=== PATIENT | female | born 1960 | race Caucasian/White ===

== ENCOUNTER 2024-03-27 13:52 | Emergency (ER) | payer MEDICARE, OTHER ==
[~2024-03-27] VITALS: Ht 160 cm; Wt 69.5 kg
[2024-03-27] MEDS ORDERED: DOXYCYCLINE MO100 MG PO (14:10)
[2024-03-27] MEDS ORDERED: OZEMPIC0.25 MG/02 (14:11)
[2024-03-27] MEDS ORDERED: ACYCLOVIR400 MG PO (14:11)
[2024-03-27] MEDS ORDERED: [UNRECOGNIZED DRUG - MIXTURE] SUB-Q (14:11)
[2024-03-27] MEDS ORDERED: MUPIROCIN22 GM TOP (14:36)
[2024-03-27 14:45] VITALS: BP 151/83
[2024-03-28] MEDS ORDERED: OZEMPIC2 MG/0.75 SUB-Q (17:24)
== END 2024-03-27 14:45 | disposition home or self-care (01) ==
LOC: ED 13:52
DX: J32.9 Chronic sinusitis, unspecified (principal)
CPT/HCPCS: 10160; 99282-25

== ENCOUNTER 2024-03-28 08:43 | Inpatient (IN) | payer MEDICARE, OTHER ==
[~2024-03-28] VITALS: Ht 160 cm; Wt 70.2 kg
[~2024-03-28 08:43] MED LIST: ACYCLOVIR400 MG PO; DOXYCYCLINE MO100 MG PO; MUPIROCIN22 GM TOP; OZEMPIC0.25 MG/02; [UNRECOGNIZED DRUG - MIXTURE] SUB-Q
--- OUTSIDE RECORDS SUMMARY | 2024-03-28 08:52 | XMS ---
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 E.D. VISIT COUNT (12 MO.) 2 STEVEN [facility] TOTAL 2 NOTE: Visits indicate total known visits. ED/UCC VISIT TRACKING (12 MO.) 03/28/2024 08:44 STEVEN [facility] OR TYPE: Emergency COMPLAINT: - FACIAL SKIN ISSUE 03/27/2024 13:53 STEVEN [facility] OR TYPE: Emergency COMPLAINT: - FACIAL SKIN ISSUE INPATIENT VISIT TRACKING (12 MO.) No inpatient visits to display in this time frame [email or web address]
[2024-03-28 09:20] LABS: BASOPHILS 0.4 % (0-2); EOSINOPHILS 0.3 % (0-6); HEMATOCRIT 38.7 % (35.0-50.0); HEMOGLOBIN 12.9 g/dL (12.0-18.0); LYMPHOCYTES 7.5 % (24-44); MCH 31.1 (27-36); MCHC 33.4 g/dl (30-36); MONOCYTES 10.1 % (0-12); NEUTROPHILS 81.7 % (39-80); PLATELET COUNT 302 K/uL (140-440); RBC 4.16 M/ul (4.3-5.7); RDW 14.4 (10.5-15.0)
[2024-03-28 09:38] LABS: ALBUMIN 3.3 g/dL (3.4-5.0); ALBUMIN/GLOBULIN RATIO 0.85 (1.1-2.4); ANION GAP 11.9 (7-21); BILIRUBIN, TOTAL 0.7 ng/dL (0.2-1.0); BUN/CREATININE RATIO 12.32 (6.0-28.6); CREATININE, SERUM 0.73 mg/dL (0.55-1.02); POTASSIUM 2.9 mmol/L (3.5-5.1); PROTEIN, TOTAL 7.2 g/dL (6.4-8.2)
[2024-03-28 09:42] LABS: LACTIC ACID, BLOOD 0.9 mmol/L (0.4-2.0)
[2024-03-28] MEDS ORDERED: POTASSIUM CHLORIDE 10 MEQ TABCR PO ONE (10:15)
[2024-03-28] MEDS ORDERED: LIDOCAINE 2% VISCOUS 6 ML SYR TOP ONE (11:45)
[2024-03-28] MEDS ORDERED: PIPERACILLIN/TAZOBACTAM 3.375 GM in DEXTROSE 5% 100 ML IV ONE (13:15)
[2024-03-28] MEDS ORDERED: VANCOMYCIN HCL/D5W 1 GM/270 ML PIGGYBACK KIT IV ONE (13:15)
[2024-03-28] MEDS ORDERED: DAPTOmycin 500 MG/10 ML VIAL IV ONE (13:30)
[2024-03-28] MEDS ORDERED: PROCHLORPERAZINE EDISYLATE 10 MG/2 ML VIAL IV PRN (13:45)
[2024-03-28] MEDS ORDERED: ACETAMINOPHEN 325 MG TAB PO PRN (13:45)
[2024-03-28] MEDS ORDERED: ondansetron HCL 4 MG/2 ML VIAL IV PRN (13:45)
[2024-03-28 14:11] LABS: MAGNESIUM 1.7 mg/dL (1.8-2.4); PHOSPHORUS, INORGANIC 2.7 mg/dL (2.5-4.9)
[2024-03-28 14:59] VITALS: BP 140/78
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
[2024-03-28] MEDS ORDERED: MAGNESIUM CHLORIDE 64 MG TABCR PO ONE (15:45)
--- NOTE | 2024-03-28 16:00 | NUR ---
PT REQUESTS SANDWICH BOX, GIVEN. PT STATES NO OTHER NEEDS AT THIS TIME, CALL LIGHT WITHIN REACH.
--- NOTE | 2024-03-28 16:04 | NUR ---
PT INFORMS THIS RN THAT HER PCP CALLED HER TODAY SAYING SHE HAS A UTI, DR BAUMAN CALLED, NO NEW ORDERS PLACED AT THIS TIME. PT UPDATED ON POC.
[2024-03-28] MEDS ORDERED: TRAMADOL HCL 50 MG TAB PO PRN (16:15)
--- NOTE | 2024-03-28 16:18 | NUR ---
THIS RN CALLS PT'S PCP FOR URINE CULTURE RESULTS PER DR BAUMAN'S REQUEST, RESULTS RECEIVED VIA FAX, DR BAUMAN NOTIFIED.
--- NOTE | 2024-03-28 16:53 | NUR ---
PT VISITING WITH BOYFRIEND AT THE BEDSIDE. PT STATES SHE DECIDED THAT SHE WOULD NOT LIKE THE FLU SHOT WHILE SHE IS AT THE HOSPITAL. PT STATES SHE BELIEVES SHE WAS GOING TO GET THE TETANUS SHOT WHILE HERE. PT REQUESTS MORE ICE WATER, GIVEN. PT STATES NO FURTHER NEEDS AT THIS TIME, CALL LIGHT WITHIN REACH.
[2024-03-28] MEDS ORDERED: OZEMPIC2 MG/0.75 SUB-Q (17:24)
--- NOTE | 2024-03-28 17:59 | NUR ---
PT DID NOT EAT PROVIDED TRAY, SHE HAD A SANDWICH EARLIER AND ATE ALL OF IT SO SHE WAS NOT HUNGRY
[2024-03-28 18:00] VITALS: BP 126/73
[2024-03-28 18:04] VITALS: BP 126/73
--- NOTE | 2024-03-28 19:05 | NUR ---
REPORT RECEIVED FROM WARREN FERRELL. pt RESTING IN THE BED. BOARD UPDATED. pt DENIES ANY NEEDS AT THIS TIME. CALL LIGHT WITHIN REACH.
[2024-03-28] MEDS ORDERED: MELATONIN 3 MG TAB PO PRN (21:00)
[2024-03-28 21:48] VITALS: BP 138/72
[2024-03-28] MEDS ORDERED: PIPERACILLIN/TAZOBACTAM 3.375 GM in DEXTROSE 5% 100 ML IV SCH (22:00)
--- NOTE | 2024-03-28 22:05 | NUR ---
ASSESSMENT AND VITAL SIGNS DONE. pt RESTING IN THE BED. IV ABX INFUSING PER ORDER SEE MAR. IV ASSESSED, WNL. pt DENIES ANY NEEDS AT THIS TIME. WATER REFRESHED. NOSE SWOLLEN AND RED. pt INDEPENDENT IN THE RM. CALL LIGHT WITHIN REACH.
--- NOTE | 2024-03-28 22:45 | NUR ---
pt CALLED IV ALARMING, DISTAL OCCLUSION. THIS RN IN RM TO FIX IV. pt DENIES ANY OTHER NEEDS AT THIS TIME. CALL LIGHT WITHIN REACH.
[2024-03-29] VITALS (7 sets, daily range): BP systolic 112–129; BP diastolic 61–78
--- NOTE | 2024-03-29 01:02 | NUR ---
pt RESTING IN THE BED WITH EYES CLOSED. RR EVEN AND UNLABORED. CALL LIGHT WITHIN REACH.
--- NOTE | 2024-03-29 02:56 | NUR ---
pt CALLED, IV ALARMING. IV ABX FINISHED INFUSING. ASSESSMENT AND VITAL SIGNS DONE. pt DENIES ANY OTHER NEEDS AT THIS TIME. CALL LIGHT WITHIN REACH. pt SL.
--- NOTE | 2024-03-29 04:30 | NUR ---
pt RESTING IN BED WITH EYES CLOSED. RR EVEN AND UNLABORED. CALL LIGHT WITHIN REACH.
[2024-03-29 05:37] LABS: BASOPHILS 0.6 % (0-2); EOSINOPHILS 1.4 % (0-6); HEMATOCRIT 36.2 % (35.0-50.0); HEMOGLOBIN 12.1 g/dL (12.0-18.0); LYMPHOCYTES 13.9 % (24-44); MCH 31.1 (27-36); MCHC 33.6 g/dl (30-36); MCV 92.6 fl (81-99); MONOCYTES 11.7 % (0-12); NEUTROPHILS 72.4 % (39-80); PLATELET COUNT 305 K/uL (140-440); RDW 14.6 (10.5-15.0)
[2024-03-29 05:49] LABS: ANION GAP 12.2 (7-21); BUN/CREATININE RATIO 8.69 (6.0-28.6); CALCIUM 8.7 mg/dL (8.5-10.1); CREATININE, SERUM 0.69 mg/dL (0.55-1.02); MAGNESIUM 1.9 mg/dL (1.8-2.4); POTASSIUM 3.2 mmol/L (3.5-5.1)
--- NOTE | 2024-03-29 06:25 | NUR ---
VITAL SIGNS DONE. IV ABX INFUSING PER ORDER. pt DENIES ANY NEEDS AT THIS TIME. CALL LIGHT WITHIN REACH.
--- NOTE | 2024-03-29 07:40 | NUR ---
DID HRLY ROUNDING ON PT, SHE ASKED FOR FRESH WATER. I UPDATED WHITE BOARD, PT DIDNT NEED ANYTHING ELSE FROM ME AND CALL LIGHT IS WITHIN REACH.
[2024-03-29] MEDS ORDERED: DIPHTH,PERTUSS(ACELL),TET VAC 0.5 ML SYRINGE IM ONE (07:45)
--- NOTE | 2024-03-29 08:01 | NUR ---
UR NOTE OBSERVATION ORDER 03/28/24 1509 EXPECTED LENGTH OF STAY <2 MIDNIGHTS PRIMARY INSURANCE: MEDICARE
[2024-03-29] MEDS ORDERED: POTASSIUM CHLORIDE 10 MEQ TABCR PO ONE (08:15)
[2024-03-29] MEDS ORDERED: PYRIDOXINE 100 MG/ML SUB-Q (08:43)
[2024-03-29] MEDS ORDERED: BUPROPION HCL150 M2 PO (08:44)
[2024-03-29] MEDS ORDERED: DULOXETINE HCL60 MG PO (08:44)
[2024-03-29] MEDS ORDERED: DAPTOmycin 500 MG/10 ML VIAL IV SCH (09:00)
--- NOTE | 2024-03-29 09:19 | NUR ---
ADMIN TRAMADOL 50MG PO FOR REPORTS OF 5/10 NOSE PAIN. ICE PACK PROVIDED TO PATIENT AT THIS TIME.
[2024-03-29] MEDS ORDERED: ACYCLOVIR400 MG PO (09:37)
--- NOTE | 2024-03-29 09:37 | NUR ---
MED REC COMPLETE
[2024-03-29] MEDS ORDERED: DULOXETINE HCL 60 MG CAP PO SCH (10:18)
--- NOTE | 2024-03-29 10:50 | NUR ---
Spoke with pt. She lives alone in an appartment. Boyfriend will assist her as needed. She does not use any DME. She is disabled. Financiall ok, but does use food stamps. She does her own shopping,cooking, cleaning. She denies issues and plans on dc to home when cleared medically.
[2024-03-29] MEDS ORDERED: PHARMACY RENAL DOSE ADJUSTMENT 1 DOSE MISC PO SCH (12:00)
--- NOTE | 2024-03-29 13:44 | NUR ---
ATTEMPTED TO VISIT DURING SPIRITUAL CARE ROUNDS. PT RECEIVING NURSING CARE. DID NOT INTERRUPT. PROVIDED PRAYER.
--- NOTE | 2024-03-29 16:14 | NUR ---
IN TO ANSWER CALL LIGHT. IV PUMP ALARMING, RESOLVED. PT REQUESTING ICE WATER, ICE WATER PROVIDED. PT DENIES ANY OTHER NEEDS AT THIS TIME. CALL LIGHT IN REACH.
--- NOTE | 2024-03-29 16:30 | NUR ---
Fresh ice pack provided per patient request. Patient reports she is doing well at this time. IV abx infusing per provider order. Call light within reach.
--- NOTE | 2024-03-29 17:42 | NUR ---
Patient tolerated 100% of her dinner. Patient reports her pain is tolerable at this time. Patient's nose appear less swollen this evening. No needs at this time. Call light within reach.
--- NOTE | 2024-03-29 19:30 | NUR ---
REPORT RECEIVED FROM DAY RN. PATIENT RESTING IN BED WITH NO C/O PAIN OR DISCOMFORT. REQUESTED FRESH ICE WATER. ICE WATER GIVEN. IV ABX INFUSSION COMPLETE AT THIS TIME. IV PATENT AT THIS TIME. NO FURTHER NEEDS. CALL LIGHT WITHIN REACH.
--- NOTE | 2024-03-29 20:05 | NUR ---
PATIENT RESTING IN BED. ASSESSMENT COMPLETE. NOSE IS RED AND SWOLLEN. NO NOTED DRAINAGE, PATIENT REPORTS CLEAR DRAINAGE AT TIMES. DENIES ANY PAIN OR DISCOMFORT. LUNGS CTA, BOWEL TONES ACTIVE X 4 QUADRANTS SKIN CDI. NO FURTHER NEEDS AT THIS TIME. CALL LIGHT WITHIN REACH.
--- NOTE | 2024-03-29 22:16 | NUR ---
Patient resting in bed, watching tv. IV abx started. Denies any pain at this time. Denies any further needs at this time. Call light within reach.
[2024-03-30] VITALS (11 sets, daily range): BP systolic 117–140; BP diastolic 51–79
--- NOTE | 2024-03-30 00:10 | NUR ---
PATIENT RESTING IN BED LAYING ON RIGHT SIDE WITH EYES CLOSED. RESPIRATIONS EVEN AND UNLABORED. IV ABX INFUSING WITH NO ISSUES AT THIS TIME. CALL LIGHT WITHIN REACH.
--- NOTE | 2024-03-30 02:10 | NUR ---
Patient resting in bed with eyes closed. Respritations even and unlabored. Call light within reach.
--- NOTE | 2024-03-30 04:22 | NUR ---
Patient resting in bed laying on left side. Eyes closed. Respirations even and unlabored. Call light within reach.
--- NOTE | 2024-03-30 05:46 | NUR ---
PATIENT AMBULATED TO BATHROOM WITH FWW AND 1 PA ASSIST. SOB UPPON RETURN TO BED, RECOVERED QUICKLY. VSS, DENIES ANY ABD PAIN OR DISCOMFORT AT THIS TIME. IVF INFUSING WITH NO ISSUES. LUNGS CTA. CALL LIGHT WITHIN REACH.
--- NOTE | 2024-03-30 06:18 | NUR ---
VSS, IV ABX HUNG. DENIES ANY PAIN OR DISCOMFORT AT THIS TIME. NOSE REMAINS RED AND SWOLLEN. NO FURTHER NEEDS AT THIS TIME. CALL LIGHT WITHIN REACH.
--- NOTE | 2024-03-30 06:34 | NUR ---
SPOKE WITH MD, NEW TELEPHONE ORDERS RECEIVED FOR A CBC AND BMP.
[2024-03-30 06:55] LABS: BASOPHILS 1.2 % (0-2); HEMATOCRIT 37.9 % (35.0-50.0); HEMOGLOBIN 12.6 g/dL (12.0-18.0); MCHC 33.3 g/dl (30-36); MCV 92.9 fl (81-99); MONOCYTES 11.3 % (0-12); NEUTROPHILS 66.5 % (39-80); PLATELET COUNT 345 K/uL (140-440); RBC 4.08 M/ul (4.3-5.7); RDW 14.5 (10.5-15.0)
[2024-03-30 06:59] LABS: ANION GAP 12.8 (7-21); BUN/CREATININE RATIO 12.69 (6.0-28.6); CALCIUM 8.6 mg/dL (8.5-10.1); CREATININE, SERUM 0.63 mg/dL (0.55-1.02); POTASSIUM 3.8 mmol/L (3.5-5.1)
--- NOTE | 2024-03-30 07:20 | NUR ---
RECEIVED REPORT FROM GHASSAN HER. PT AWAKE IN BED, STATES NO NEEDS AT THIS TIME, CALL LIGHT WITHIN REACH. ASSUMING CARE OF PT.
--- NOTE | 2024-03-30 09:41 | NUR ---
ADMINISTERED MORNING MEDICATIONS, PATIENT TOLERATED WELL. RATED PAIN 4/10 ON PAIN SCALE, PATIENT REPORTED TOLERABLE. PATIENT RESTING IN BED, APPEARED CALM, AAOX3. PATIENT UPDATED ON POC, DISCHARGE PLAN TO STAY ANOTHER MIDNIGHT.CALL LIGHT WITHIN REACH, NO OTHER NEEDS AT THIS TIME.
--- NOTE | 2024-03-30 10:11 | NUR ---
UNABLE TO VISIT DURING SPIRITUAL CARE ROUNDS; PT RECEIVING NURSING CARE. PROVIDED PRAYER.
--- NOTE | 2024-03-30 10:11 | NUR ---
PT SITTING UP IN BED AWAKE, STATES NO PAIN IN NOSE WHEN NOT MOVING, 4/10 IF MOVING NOSE. PT DENIES NEED FOR PAIN MEDICATION AT THIS TIME. R AC IV NOT ABLE TO FLUSH, DC'D D/T INABILITY TO USE. IV DC'D WNL, WRAPPED IN GAUZE AND COBAN PER PROTOCOL. NOSE CONTINUES TO BE RED AND SWOLLEN, PT STATES HAS IMPROVED. PT STATES NO NEEDS AT THIS TIME, CALL LIGHT WITHIN REACH.
--- NOTE | 2024-03-30 11:59 | NUR ---
Spoke with Erendira. She denies needs. Per 8;[address] Trevino will need to remain another day for cultures. Pt is aware. Gave her crossword puzzle and word search books. Denies other request.
--- NOTE | 2024-03-30 12:45 | NUR ---
PT SITTING UP IN BED, DENIES PAIN AT THIS TIME. PT HAS FINISHED LUNCH, STATES NO NEEDS AT THIS TIME. CALL LIGHT WITHIN REACH.
--- NOTE | 2024-03-30 14:20 | NUR ---
IN TO ADMINISTER MEDICATION, SEE MAR. IV FLUSHES WNL. IV ABX STARTED, SEE MAR. PT SITTING UP IN BED AND RESPONDS WHEN ADDRESSED. PT DENIES ANY OTHER NEEDS AT THIS TIME. CALL LIGHT IN REACH.
--- NOTE | 2024-03-30 14:50 | NUR ---
PT SITTING UP AWAKE IN BED. PT STATES SHE DOES NOT NOTICE ANY DIFFERENCE IN PAIN OR SWELLING IN NOSE SINCE MORNING ASSESSMENT, NO CHANGE IN REDNESS OR SWELLING SINCE MORNING ASSESSMENT. PT STATES NO NEEDS AT THIS TIME, CALL LIGHT WITHIN REACH.
--- NOTE | 2024-03-30 18:42 | NUR ---
THIS RN CALLED DR. MARIANO ASKING IF HE WOULD LIKE ANY AM LABS FOR PT. PER "NO AM LABS." VERIFIED WITH READBACK.
--- NOTE | 2024-03-30 19:05 | NUR ---
REPORT RECEIVED FROM WARREN FERRELL. pt RESTING IN THE BED. pt DENIES ANY NEEDS AT THIS TIME. CALL LIGHT WITHIN REACH. BOARD UPDATED.
--- NOTE | 2024-03-30 19:49 | NUR ---
REPORT RECEIVED FROM GREGG FERRELL. pt RESTING IN THE BED. pts DAUGHTER BROUGHT IN [place] FOR pt. pt REQUESTED BREATHING TREATMENT AND REPOSITIONED TO BETTER ENJOY HER BEVERAGE. RT ARRIVED AND ADMINISTERED TREATMENT. pt FINISHED DRINK AFTER A COUPLE SIPS AND REQUESTED TO LAY DOWN. pt LAYING DOWN. HEARING AID CHARGING. pt DENIES ANY OTHER NEEDS AT THIS TIME CALL LIGHT WITHIN REACH.
--- NOTE | 2024-03-30 21:37 | NUR ---
ASSESSMENT AND VITAL SIGNS DONE. IV ABX INFUSING PER ORDER, SEE MAR. IV ASSESSED, WNL. pt DENIES ANY NEEDS AT THIS TIME. WATER REFRESHED. NOSE, RED AND SWOLLEN BUT SIGNIFICANTLY LESS SWOLLEN THAN WHEN pt WAS ADMITTED. CALL LIGHT WITHIN REACH.
--- NOTE | 2024-03-30 23:13 | NUR ---
pt RESTING IN BED. pt DENIES ANY NEEDS AT THIS TIME. CALL LIGHT WITHIN REACH.
--- NOTE | 2024-03-31 01:15 | NUR ---
pt CALLED STATED IV WAS DONE. IV ABX STILL INFUSING. pt DENIES ANY NEEDS AT THIS TIME. CALL LIGHT WITHIN REACH.
--- NOTE | 2024-03-31 03:28 | NUR ---
pt RESTING IN THE BED. pt DENIES ANY NEEDS AT THIS TIME. CALL LIGHT WITHIN REACH.
[2024-03-31 05:52] VITALS: BP 135/90
[2024-03-31] MEDS ORDERED: diphenhydrAMINE HCL 50 MG/ML VIAL IV ONE (06:15)
--- NOTE | 2024-03-31 06:25 | NUR ---
VITAL SIGNS DONE. pt C/O ITCHING. MD MARIANO CALLED. NEW ORDERS RECEIVED AND VERIFIED WITH REPEAT BACK METHOD. WATER REFRESHED. IV ABX INFUSING PER ORDER. pt DENIES ANY OTHER NEEDS AT THIS TIME. CALL LIGHT WITHIN REACH.
--- NOTE | 2024-03-31 07:20 | NUR ---
RECEIVED REPORT FROM GHASSAN AMARAL. ASSUMING CARE OF PT. PT AWAKE IN BED WATCHING TV, STATES NO NEEDS AT THIS TIME, DENIES PAIN AT THIS TIME. CALL LIGHT WITHIN REACH.
--- NOTE | 2024-03-31 08:05 | NUR ---
PT AWAKE IN BED, STATES NO PAIN AT THIS TIME. REDNESS ON NOSE DECREASED FROM YESTERDAY SINCE THIS RN'S ASSESSMENT AND PER PT. NO DRAINAGE PRESENT. PT STATES NO NEEDS AT THIS TIME, CALL LIGHT WITHIN REACH.
[2024-03-31] MEDS ORDERED: DOXYCYCLINE MO100 MG PO (09:04)
--- NOTE | 2024-03-31 09:47 | NUR ---
PT RESTING WITH EYES CLOSED, BREATHING EVEN AND UNLABORED. CALL LIGHT WITHIN REACH.
--- NOTE | 2024-03-31 10:20 | NUR ---
IV DC'D WNL. PT UP TO SHOWER INDEPENDENTLY. PT STATES NO NEEDS AT THIS TIME, CALL LIGHT WITHIN REACH.
[2024-03-31 12:00] VITALS: BP 136/90
--- NOTE | 2024-03-31 12:05 | NUR ---
PT DRESSES SELF IN OWN CLOTHES. VSS. EDUCATION AND DC PACKET GIVEN, PT VERBALIZES UNDERSTANDING AND STATES ALL QUESTIONS HAVE BEEN ANSWERED. PT AMBULATES TO FRONT OF BUILDING.
== END 2024-03-31 12:05 | disposition home or self-care (01) | DRG 155 ==
LOC: ED 08:43 → MS 08:45
PROVIDERS: Emergency Medicine; Internal Medicine; ADMIT Family Medicine; ATTEND Family Medicine
PROC: 099K0ZZ Drainage of Nasal Mucosa and Soft Tissue, Open Approach (ICD-10-PCS; principal; 2024-03-28)
DX: J34.0 Abscess, furuncle and carbuncle of nose (principal); L03.211 Cellulitis of face; N39.0 Urinary tract infection, site not specified; M79.7 Fibromyalgia; E87.6 Hypokalemia; Z98.890 Other specified postprocedural states; Z79.2 Long term (current) use of antibiotics; Z79.899 Other long term (current) drug therapy
CPT/HCPCS: 36415; 70487; 80048; 80053; 83605; 83735; 84100; 85025; 87040; 87070; 87205; 90715; A9270; J0878; J1200; J2543; Q9967